=== PATIENT | male | born 1990 | race Caucasian/White ===

== ENCOUNTER 2018-08-14 11:31 | Emergency (ER) | payer OTHER ==
[~2018-08-14] VITALS: Ht 182.9 cm; Wt 102.1 kg
[2018-08-14] MEDS ORDERED: ETOMIDATE (2MG/ML) 20ML VIAL IV ONE (12:15)
[2018-08-14 12:20] VITALS: BP 141/85
== END 2018-08-14 12:55 | disposition home or self-care (01) ==
LOC: ER 11:31
DX: S43.004A Unspecified dislocation of right shoulder joint, initial encounter (principal); V86.56XA Driver of dirt bike or motor/cross bike injured in nontraffic accident, initial encounter; Y93.89 Activity, other specified; Y99.8 Other external cause status; Y92.89 Other specified places as the place of occurrence of the external cause
CPT/HCPCS: 23650; 73030; 94761